=== PATIENT | female | born 2000 | race African-American/Black ===

== ENCOUNTER 2021-07-22 13:33 | Emergency (ER) | payer OTHER, SELFPAY ==
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
[2021-07-22 14:07] VITALS: BP 113/83; PULSE 83; RESP 16; TEMP 36.9; O2SAT 100
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
[2021-07-22] MEDS: IBUPROFEN 600 MG TABLET PO (15:36)
== END 2021-07-22 15:36 | disposition home or self-care (01) ==
LOC: ANHED 15:46
PROVIDERS: Emergency Provider Emergency Medicine
DX: S46.911A Strain of unspecified muscle, fascia and tendon at shoulder and upper arm level, right arm, initial encounter (principal); S93.401A Sprain of unspecified ligament of right ankle, initial encounter; V43.62XA Car passenger injured in collision with other type car in traffic accident, initial encounter
CPT/HCPCS: 70450; 73030; 73610; 99284; A9270